=== PATIENT | female | born 1965 | race Caucasian/White ===

== ENCOUNTER 2021-07-13 15:44 | Emergency (ER) | payer BC ==
[~2021-07-13] VITALS: Ht 167.6 cm; Wt 114.3 kg
[~2021-07-13 15:44] MED LIST: IBUP-81
[2021-07-13 17:15] VITALS: BP 145/88
[2021-07-13] MEDS: MORPHINE SULFATE 4 MG/ML SYR IM ONE (18:42)
[2021-07-13] MEDS ORDERED: LID5T TP (18:51)
[2021-07-13] MEDS ORDERED: ACET-8386 PO (18:51)
== END 2021-07-13 19:04 | disposition home or self-care (01) ==
LOC: MED 15:44
DX: M19.012 Primary osteoarthritis, left shoulder (principal); Z88.0 Allergy status to penicillin; Z88.6 Allergy status to analgesic agent; Z79.899 Other long term (current) drug therapy; Z98.890 Other specified postprocedural states
CPT/HCPCS: 71045; 73030; 93005; 96372; 99284; J2270